=== PATIENT | male | born 1995 | race American Indian/Alaskan Native ===

== ENCOUNTER 2019-03-24 11:34 | Emergency (ER) | payer BC ==
[2019-03-24 13:26] LABS: Bilirubin,Urine NEG (Negative); Blood,Urine LG (Negative); Color,Urine Yellow (Yellow); Mucus,Urine 3+ /HPF
[2019-03-24 13:27] LABS: RBC,Urine > 182.0 /HPF (0.0-6.0)
--- NOTE | 2019-03-24 13:37 | Emergency Department Report ---
ED Male HPI - General Chief complaint: Urogenital-Male Stated complaint: BLOOD IN URINE/SHAFT PAIN Time Seen by Provider: 03/24/19 13:37 Source: patient Mode of arrival: Ambulatory Limitations: No Limitations - History of Present Illness Initial comments: Patient reports left back pain and blood in his urine that started two days ago MD Complaint: other (hematuria and flank pain) Onset/Timin -: days(s) Location: penis, left flank Radiation: none Severity: severe Severity scale (0 -10): 8 Quality: aching Consistency: constant Improves with: none Worsens with: none denies other symptoms, blood in urine. denies: discharge, swelling, mass, rash, urinary retention, dysuria, fever, nausea/vomiting, incontinence - Related Data Sexually active: Yes Previous Rx's Medication Instructions Recorded Last Taken Type Tamsulosin [Flomax] 0.4 mg PO QDAY #10 cap 03/24/19 Unknown Rx oxyCODONE /ACETAMINOPHEN [Percocet 1 tab PO Q6HR PRN #10 tablet 03/24/19 Unknown Rx 5/325] Allergies Allergy/AdvReac Type Severity Reaction Status Date / Time No Known Allergies Allergy Unverified 03/24/19 11:41 ED Review of Systems ROS: Stated complaint: BLOOD IN URINE/SHAFT PAIN Other details as noted in HPI Constitutional: denies: chills, fever Eyes: denies: eye pain, eye discharge, vision change ENT: denies: ear pain, throat pain Respiratory: denies: cough, orthopnea, shortness of breath, SOB with exertion, SOB at rest, stridor, wheezing Cardiovascular: denies: chest pain, palpitations Endocrine: no symptoms reported Gastrointestinal: denies: abdominal pain, nausea, diarrhea, constipation, hematemesis, melena Genitourinary: hematuria. denies: urgency, dysuria Musculoskeletal: back pain (left flank pain). denies: joint swelling, arthralgia Skin: denies: rash, lesions Neurological: denies: headache, weakness, paresthesias Psychiatric: denies: anxiety, depression Hematological/Lymphatic: denies: easy bleeding, easy bruising ED Past Medical Hx - Past Medical History Previous Medical History?: No - Surgical History Past Surgical History?: No - Social History Smoking Status: Current Every Day Smoker Substance Use Type: Alcohol, Marijuana - Medications Home Medications: Home Medications Medication Instructions Recorded Confirmed Last Taken Type Tamsulosin [Flomax] 0.4 mg PO QDAY #10 cap 03/24/19 Unknown Rx oxyCODONE /ACETAMINOPHEN [Percocet 1 tab PO Q6HR PRN #10 tablet 03/24/19 Unknown Rx 5/325] ED Physical Exam - General Limitations: No Limitations General appearance: alert, in no apparent distress - Respiratory Respiratory exam: Present: normal lung sounds bilaterally. Absent: respiratory distress, wheezes, rales, rhonchi, stridor, chest wall tenderness, accessory muscle use, decreased breath sounds, prolonged expiratory - Cardiovascular Cardiovascular Exam: Present: regular rate, normal rhythm, normal heart sounds. Absent: systolic murmur, diastolic murmur, rubs, gallop - GI/Abdominal GI/Abdominal exam: Present: soft, normal bowel sounds. Absent: distended, tenderness, guarding, rebound, rigid - Back Exam Back exam: Present: normal inspection, full ROM, CVA tenderness (L). Absent: te nderness, CVA tenderness (R), muscle spasm, paraspinal tenderness, vertebral tenderness, rash noted - Neurological Exam Neurological exam: Present: alert, oriented X3, CN II-XII intact, normal gait, reflexes normal. Absent: motor sensory deficit - Psychiatric Psychiatric exam: Present: normal affect, normal mood - Skin Skin exam: Present: warm, dry, intact, normal color. Absent: rash ED Course Vital Signs 03/24/19 03/24/19 12:03 15:47 Temperature 98.5 F 98.0 F Pulse Rate 69 85 Respiratory 18 16 Rate Blood Pressure 116/72 Blood Pressure 110/65 [Right] O2 Sat by Pulse 98 99 Oximetry ED Medical Decision Making - Lab Data Lab Results 03/24/19 Range/Units 12:46 Urine Color Yellow (Yellow) Urine Turbidity Slightly-cloudy (Clear) Urine pH 6.0 (5.0-7.0) Ur Specific [place] 1.017 (1.003-1.030) Urine Protein 100 mg/dl (Negative) mg/dL Urine Glucose (UA) Neg (Negative) mg/dL Urine Ketones Neg (Negative) mg/dL Urine Blood Lg (Negative) Urine Nitrite Neg (Negative) Urine Bilirubin Neg (Negative) Urine Urobilinogen 4.0 (<2.0) mg/dL Ur Leukocyte Esterase Neg (Negative) Urine WBC (Auto) 10.0 H (0.0-6.0) /HPF Urine RBC (Auto) > 182.0 (0.0-6.0) /HPF U Epithel Cells (Auto) < 1.0 (0-13.0) /HPF Urine Mucus 3+ /HPF Vital Signs 03/24/19 03/24/19 12:03 15:47 Temperature 98.5 F 98.0 F Pulse Rate 69 85 Respiratory 18 16 Rate Blood Pressure 116/72 Blood Pressure 110/65 [Right] O2 Sat by Pulse 98 99 Oximetry - Radiology Data Radiology results: image reviewed CT ABDOMEN AND PELVIS WITHOUT CONTRAST HISTORY: left flank pain with hematuria COMPARISON: None. TECHNIQUE: Axial CT images were obtained through the abdomen and pelvis without IV contrast. Sagittal and coronal reformatted images. All CT scans at this location are per formed using CT dose reduction for ALARA by means of automated exposure control. FINDINGS: CT ABDOMEN: Lung Bases: Clear. Liver: No significant abnormality. Biliary: No significant abnormality. Spleen: No significant abnormality. Unenlarged. Pancreas: No significant abnormality. Adrenals: No significant abnormality. Kidneys: No significant abnormality. Lymphatics: No lymphadenopathy. Vasculature: No significant abnormality. Bowel/Peritoneum: No significant abnormality. No free air. No free fluid. The appendix is not confidently identified secondary to lack of intraperitoneal fat or appendectomy. No inflammatory changes in the right lower quadrant. CT PELVIS: : A 2 mm calcification is identified in the vicinity of the left UVJ on image 419, series 3. This probably represents a small stone at the left UVJ. There is no left hydronephrosis. Osseous Structures: No significant abnormality. Additional Findings: None IMPRESSION: Probable 2 mm calculus in the distal left ureter/left UVJ as described. No evidence for obstruction - Medical Decision Making During the course of ED, all other systems are unremarkable except for documentation in HPI. Radiology studies revealed Probable 2 mm calculus in the distal left ureter/left UVJ as described. No evidence for obstruction. He was sent home prescriptions for Percocet and Flomax, instructed to maintain hydr ation to allow stone to pass freely, he verbalized understanding - Differential Diagnosis Left Flank Pain, Kidney Stone, STI, UTI Critical care attestation.: If time is entered above; I have spent that time in minutes in the direct care of this critically ill patient, excluding procedure time. ED Disposition Clinical Impression: Kidney stone on left side Disposition: DC-01 TO HOME OR SELFCARE Is pt being admited?: No Does the pt Need Aspirin: No Condition: Stable Instructions: Kidney Stones (ED) Additional Instructions: Take medication as directed. No drinking or driving while taking medication. Follow up with the selective referral given at discharge. Drink plenty of fluids in order to allow the stone to pass more freely. Return back to the ED for worsening symptoms or concerns Prescriptions: Tamsulosin [Flomax] 0.4 mg PO QDAY #10 cap oxyCODONE /ACETAMINOPHEN [Percocet 5/325] 1 tab PO Q6HR PRN #10 tablet PRN Reason: Pain Referrals: PRIMARY CAREMD [Primary Care Provider] - 3-5 Days RACHAEL MCKEON MD [Staff Physician] - 3-5 Days CYNTHIA SHAIKH MD [Referring] - 3-5 Days Forms: Work/School Release Form(ED) Time of Disposition: 15:21
--- NOTE | 2019-03-24 15:01 | Cat Scan Report ---
CT ABDOMEN AND PELVIS WITHOUT CONTRAST HISTORY: left flank pain with hematuria COMPARISON: None. TECHNIQUE: Axial CT images were obtained through the abdomen and pelvis without IV contrast. Sagittal and coronal reformatted images. All CT scans at this location are performed using CT dose reduction for ALARA by means of automated exposure control. FINDINGS: CT ABDOMEN: Lung Bases: Clear. Liver: No significant abnormality. Biliary: No significant abnormality. Spleen: No significant abnormality. Unenlarged. Pancreas: No significant abnormality. Adrenals: No significant abnormality. Kidneys: No significant abnormality. Lymphatics: No lymphadenopathy. Vasculature: No significant abnormality. Bowel/Peritoneum: No significant abnormality. No free air. No free fluid. The appendix is not confide ntly identified secondary to lack of intraperitoneal fat or appendectomy. No inflammatory changes in the right lower quadrant. CT PELVIS: : A 2 mm calcification is identified in the vicinity of the left UVJ on image 419, series 3. This p robably represents a small stone at the left UVJ. There is no left hydronephrosis. Osseous Structures: No significant abnormality. Additional Findings: None IMPRESSION: Probable 2 mm calculus in the distal left ureter/left UVJ as described. No evidence for obstruction. Signer Name: Cj Wells Jr, MD Signed: 03/24/2019 2:56 PM Workstation Name: [id number]
[2019-03-24 15:48] VITALS: BP 110/65
== END 2019-03-24 15:47 | disposition home or self-care (01) ==
LOC: ED 11:34
DX: N20.0 Calculus of kidney (principal); F17.200 Nicotine dependence, unspecified, uncomplicated; F12.10 Cannabis abuse, uncomplicated
CPT/HCPCS: 74176; 81001; 87086; 99284

== ENCOUNTER 2019-04-26 16:52 | Emergency (ER) | payer BC ==
[2019-04-26 17:05] VITALS: BP 128/65
--- NOTE | 2019-04-26 17:12 | Emergency Department Report ---
Blank Doc - Documentation Documentation: 23-male that presents with left shoulder pain s/p fall. This initial assessment/diagnostic orders/clinical plan/treatment(s) is/are subject to change based on patient's health status, clinical progression and re- assessment by fellow clinical providers in the ED. Further treatment and workup at subsequent clinical providers discretion. Patient/guardians urged not to elope from the ED as their condition may be serious if not clinically assessed and managed. Initial orders include: 1- Patient sent to [facility] for further evaluation and treatment 2- xrays
--- NOTE | 2019-04-26 17:42 | XRay Report ---
LEFT SHOULDER 3 VIEWS. INDICATION / CLINICAL INFORMATION: Trauma,LT shoulder pain COMPARISON: None available. FINDINGS: BONES / JOINT(S): Fracture midshaft of the clavicle with elevation of the proximal fragment. AC joint intact. No additional bony injury. No significant arthritis. SOFT TISSUES: No significant abnormality. ADDITIONAL FINDINGS: None. Signer Name: Parish Kilgore MD Signed: 04/26/2019 5:37 PM Workstation Name: [id number]
[2019-04-26] MEDS ORDERED: HYDROcodone/ACETAMINOPHEN 5-325 MG TAB PO ONE (20:37)
--- NOTE | 2019-04-26 20:55 | Emergency Department Report ---
ED Upper Extremity Inj HPI - General Chief Complaint: Shoulder Injury Stated Complaint: FELL OFF SKATEBOARD/HURT SHOULDER Time Seen by Provider: 04/26/19 17:08 Source: patient Mode of arrival: Ambulatory Limitations: No Limitations - History of Present Illness Initial Comments: Mr. Crowell is a 23-male that presents with left shoulder pain s/p fall. P atient states he was skateboarding slipped and fell landed on his left shoulder no pain swelling and bruising to left collar bone. pain is 5/10 , there is no shortness of breath, no wheezing, ecchymosis, no hemoptysis. Patient denies other injury range of motion is intact, left clavicular pain is reproducible with palpation there is no crepitus MD Complaint: Injury to:: left, shoulder Onset/Timin -: hour(s) Other Extremity Injury: Shoulder: Left (clavical ) Other Injuries: none Handedness: right Place: outdoors Severity scale (0 -10): 5 Improves With: none Worsens With: movement of extremity Context: fall, injury, skateboard accident Associated Symptoms: heard/felt popping sensat - Related Data Previous Rx's Medication Instructions Recorded Last Taken Type Tamsulosin [Flomax] 0.4 mg PO QDAY #10 cap 03/24/19 Unknown Rx oxyCODONE /ACETAMINOPHEN [Percocet 1 tab PO Q6HR PRN #10 tablet 03/24/19 Unknown Rx 5/325] HYDROcodone/APAP 5-325 [[place] 1 each PO Q6HR PRN #12 tablet 04/26/19 Unknown Rx 5-325 mg TAB] Allergies Allergy/AdvReac Type Severity Reaction Status Date / Time No Known Allergies Allergy Unverified 03/24/19 11:41 ED Review of Systems ROS: Stated complaint: FELL OFF SKATEBOARD/HURT SHOULDER Other details as noted in HPI Constitutional: denies: chills, fever Eyes: denies: eye pain, eye discharge, vision change ENT: denies: ear pain, throat pain Respiratory: denies: cough, shortness of breath, wheezing Cardiovascular: denies: chest pain, palpitations Endocrine: no symptoms reported Gastrointestinal: denies: abdominal pain, nausea, diarrhea Genitourinary: denies: urgency, dysuria Musculoskeletal: other (left clavicular pain ). denies: back pain, joint swelling, arthralgia Skin: denies: rash, lesions Neurological: denies: headache, weakness, paresthesias Psychiatric: denies: anxiety, depression Hematological/Lymphatic: denies: easy bleeding, easy bruising ED Past Medical Hx - Past Medical History Previous Medical History?: No - Surgical History Past Surgical History?: No - Social History Smoking Status: Current Every Day Smoker Substance Use Type: Marijuana - Medications Home Medications: Home Medications Medication Instructions Recorded Confirmed Last Taken Type Tamsulosin [Flomax] 0.4 mg PO QDAY #10 cap 03/24/19 Unknown Rx oxyCODONE /ACETAMINOPHEN [Percocet 1 tab PO Q6HR PRN #10 tablet 03/24/19 Unknown Rx 5/325] HYDROcodone/APAP 5-325 [[place] 1 each PO Q6HR PRN #12 tablet 04/26/19 Unknown Rx 5-325 mg TAB] ED Physical Exam - General Limitations: No Limitations General appearance: alert, in no apparent distress - Head Head exam: Present: atraumatic, normocephalic - Eye Eye exam: Present: PERRL, EOMI Pupils: Present: normal accommodation - ENT ENT exam: Present: mucous membranes moist - Neck Neck exam: Present: normal inspection, full ROM. Absent: tenderness - Respiratory Respiratory exam: Present: normal lung sounds bilaterally. Absent: respiratory distress, wheezes, rales, rhonchi, stridor - Cardiovascular Cardiovascular Exam: Present: regular rate, normal rhythm, normal heart sounds. Absent: systolic murmur, diastolic murmur, rubs, gallop - GI/Abdominal GI/Abdominal exam: Present: soft. Absent: bruit, hernia - Rectal Rectal exam: Present: deferred - Extremities Exam Extremities exam: Present: tenderness (left calvicular tenderss mild ecchymosis no crepitus ), normal capillary refill. Absent: joint swelling - Expanded Upper Extremity Exam Left General: Present: abrasion (left calvical) Shoulder Exam: Present: tenderness, abrasion, ecchymosis. Absent: swelling, laceration, deformity, crepidus, dislocation, erythema, tenderness over AC joint Upper Arm exam: Present: normal inspection, full ROM. Absent: tenderness Elbow exam: Present: normal inspection, full ROM. Absent: tenderness, swelling Forearm Wrist exam: Present: normal inspection, full ROM, tenderness. Absent: swelling Hand Wrist exam: Present: normal inspection, full ROM. Absent: tenderness Neuro motor exam: Present: wrist extension intact, thumb opposition intact, thumb IP flexion intact, thumb adduction intact, fingers 2-5 abduction intact Neurosensory exam: Present: radial nerve intact Vascular: Present: normal capillary refill - Back Exam Back exam: Present: normal inspection, full ROM. Absent: tenderness, vertebral tenderness - Neurological Exam Neurological exam: Present: alert, oriented X3, CN II-XII intact, normal gait, reflexes normal. Absent: motor sensory deficit - Psychiatric Psychiatric exam: Present: normal affect, normal mood - Skin Skin exam: Present: warm, dry, intact, normal color. Absent: rash ED Course Vital Signs 04/26/19 17:04 Temperature 98.6 F Pulse Rate 72 Respiratory 16 Rate Blood Pressure 128/65 O2 Sat by Pulse 99 Oximetry ED Medical Decision Making - Radiology Data Radiology results: report reviewed, image reviewed Ordering Physician: TODD ZALDIVAR MD Date of Service: 04/26/19 Procedure(s): XR shoulder 2+V LT Accession Number(s): [id number] cc: TODD ZALDIVAR MD Fluoro Time In Minutes: LEFT SHOULDER 3 VIEWS. INDICATION / CLINICAL INFORMATION: Trauma,LT shoulder pain COMPARISON: None available. FINDINGS: BONES / JOINT(S): Fracture midshaft of the clavicle with elevation of the proximal fragment. AC joint intact. No additional bony injury. No significant arthritis. SOFT TISSUES: No significant abnormality. ADDITIONAL FINDINGS: None. Signer Name: Parish Kilgore MD Signed: 04/26/2019 5:37 PM Workstation Name: [id number] Transcribed By: ES Dictated By: Parish Kilgore MD Electronically Authenticated By: Parish Kilgore MD Signed Date/Time: 04/26/191736 DD/ 36 TD/TT: - Medical Decision Making This is a closed left clavicle fx mild dipsplacement, lungs normal no xray no crepitus, mile ecchymosis, distal pulses intact plan, sling, hydrocodone prn, follow up with ortho in 2-3 days, pt dc'd to home in stable condition at this time. Critical care attestation.: If time is entered above; I have spent that time in minutes in the direct care of this critically ill patient, excluding procedure time. ED Disposition Clinical Impression: Clavicle fracture, shaft Qualifiers: Encounter type: initial encounter Fracture type: closed Fracture alignment: nondisplaced Laterality: left Qualified Code(s): S42.025A - Nondisplaced fracture of shaft of left clavicle, initial encounter for closed fracture Disposition: TO HOME OR SELFCARE Is pt being admited?: No Does the pt Need Aspirin: No Condition: Stable Instructions: Clavicle Fracture (ED) Prescriptions: HYDROcodone/APAP 5-325 [[place] 5-325 mg TAB] 1 each PO Q6HR PRN #12 tablet PRN Reason: Pain Referrals: LELA BARLOW MD [Staff Physician] - 3-5 Days Forms: Work/School Release Form(ED) Time of Disposition: 21:03
== END 2019-04-26 21:09 | disposition home or self-care (01) ==
LOC: ED 16:52
DX: S42.025A Nondisplaced fracture of shaft of left clavicle, initial encounter for closed fracture (principal); F17.200 Nicotine dependence, unspecified, uncomplicated; F12.10 Cannabis abuse, uncomplicated; W01.0XXA Fall on same level from slipping, tripping and stumbling without subsequent striking against object, initial encounter; Y93.89 Activity, other specified; Y92.89 Other specified places as the place of occurrence of the external cause; Y99.8 Other external cause status